=== PATIENT | male | born 2000 | race Caucasian/White ===

== ENCOUNTER 2024-02-28 09:30 | Emergency (ER) | payer OTHER ==
[2024-02-28] MEDS ORDERED: Epinephrine Preservative Free 1 MG/ML ONE (09:32)
[2024-02-28] MEDS ORDERED: BENADRYL 50 MG/ML ONE (09:36)
[2024-02-28] MEDS ORDERED: DECADRON 10MG INJ. ONE (09:36)
[2024-02-28] MEDS ORDERED: Pepcid 20 MG VIAL IV ONE (09:36)
--- NOTE | 2024-02-28 09:37 | ERPHSYRPT ---
- History of Present Illness Time Seen by Provider: 02/28/24 09:36 Source: patient Exam Limitations: no limitations Severity: mild
[2024-02-28 09:43] VITALS: TEMP 99.5
[2024-02-28] MEDS: DECADRON 10MG INJ. IV ONE (09:44)
[2024-02-28] MEDS: BENADRYL 50 MG/ML IV ONE (09:44)
[2024-02-28] MEDS: Pepcid 20 MG VIAL IV ONE (09:45)
[2024-02-28] MEDS ORDERED: Sodium Chloride 0.9% 1000 ML 1,000 ML ONE (09:45)
[2024-02-28] MEDS ORDERED: Zofran 4 MG/2 ML VIAL ONE (09:45)
[2024-02-28] MEDS: Epinephrine Preservative Free 1 MG/ML IJ ONE (09:47)
[2024-02-28] MEDS: Sodium Chloride 0.9% 1000 ML 1,000 ML IV STA (09:47)
[2024-02-28] MEDS: Zofran 4 MG/2 ML VIAL IV ONE (09:49)
--- NOTE | 2024-02-28 10:07 | ERPHSYRPT ---
- History of Present Illness Time Seen by Provider: 02/28/24 09:36 Source: patient Exam Limitations: no limitations Patient Subjective Stated Complaint: PT states "I was eating a cookie and all of a sudden my throat started to hurt and my talking got off and I was coughing." Triage Nursing Assessment: PT presented alert and oriented X 3, skin wpd. pt ambulates with an upright steady gait, able to speak in clear full sentences. PT has slight cough, hoarse voice and slight swelling noted. Timing/Duration: today Severity: severe Modifying Factors: Improves With: other (eating cookie) Associated Symptoms: other Allergies/Adverse Reactions: No Known Drug Allergies Allergy (Verified 02/28/24 09:43) Hx Tetanus, Diphtheria Vaccination/Date Given: Yes Hx Influenza Vaccination/Date Given: Yes Hx Pneumococcal Vaccination/Date Given: No Immunizations Up to Date: No Travel Risk - International Travel Have you traveled outside of the country in past 3 weeks: No - Emerging Infectious Disease Are you exhibiting symptoms associated with any current EIDs: No - Review of Systems Eyes: No Symptoms Ears, Nose, & Throat: Other (difficulty breathing and sensation that his throat is closing ) Respiratory: No Symptoms Cardiac: No Symptoms Abdominal/Gastrointestinal: No Symptoms Genitourinary Symptoms: No Symptoms Musculoskeletal: No Symptoms Skin: No Symptoms Neurological: No Symptoms Psychological: No Symptoms Endocrine: No Symptoms - Past Medical History Pertinent Past Medical History: Yes Neurological History: No Pertinent History ENT History: No Pertinent History Cardiac History: No Pertinent History, Hypertension Respiratory History: No Pertinent History Endocrine Medical History: No Pertinent History Musculoskeletal History: No Pertinent History - Past Surgical History Past Surgical History: No - Social History Smoking Status: Never smoker Exposure to second hand smoke: No Drug Use: none - Social Determinants of Health Will the patient participate in the screening: Declined to provide - Nursing Vital Signs Nursing Vital Signs: Initial Vital Signs Temperature 99.5 F 02/28/24 09:34 Pulse Rate 89 02/28/24 09:34 Respiratory Rate 20 02/28/24 09:34 Blood Pressure 201/118 02/28/24 09:34 O2 Sat by Pulse Oximetry 96 02/28/24 09:34 Pain Scale Pain Intensity 0 - Physical Exam General Appearance: mild distress Eye Exam: PERRL/EOMI Ears, Nose, Throat Exam: normal ENT inspection Neck Exam: normal inspection Respiratory Exam: normal breath sounds Cardiovascular Exam: regular rate/rhythm Gastrointestinal/Abdomen Exam: soft, normal bowel sounds SpO2: 96 Ordered Tests: Medication Summary Discontinued Medications Generic Name Dose Route Start Last Admin Trade Name Yeny PRN Reason Stop Dose Admin Dexamethasone Sodium Phosphate 10 mg 02/28/24 09:35 02/28/24 09:48 Dexamethasone Sod Phosphate 10 Mg/Ml IV 02/28/24 09:36 10 mg STAT ONE Administration Dexamethasone Sodium Phosphate Confirm 02/28/24 09:36 Dexamethasone Sod Phosphate 10 Mg/Ml Administered 02/28/24 09:37 Dose 10 mg .ROUTE .STK-MED ONE Diphenhydramine HCl 50 mg 02/28/24 09:35 02/28/24 09:44 Diphenhydramine Hcl 50 Mg/Ml Vial IV 02/28/24 09:36 50 mg STAT ONE Administration Diphenhydramine HCl Confirm 02/28/24 09:36 Diphenhydramine Hcl 50 Mg/Ml Vial Administered 02/28/24 09:37 Dose 50 mg .ROUTE .STK-MED ONE Epinephrine HCl 0.36 mg 02/28/24 09:46 02/28/24 09:47 Epinephrine 1 Mg/1 Ml Pf Amp 1 Mg/Ml Ml IJ 02/28/24 09:47 0.36 mg STAT ONE Administration Famotidine 20 mg 02/28/24 09:35 02/28/24 09:45 Famotidine 20 Mg/1 Vial IV 02/28/24 09:36 20 mg STAT ONE Administration Famotidine Confirm 02/28/24 09:36 Famotidine 20 Mg/1 Vial Administered 02/28/24 09:37 Dose 20 mg IV .STK-MED ONE Sodium Chloride 1,000 mls @ 999 mls/hr 02/28/24 09:46 02/28/24 10:50 Sodium Chloride 0.9% 1000 Ml IV 02/28/24 10:46 Infused .Q1H1M STA Infusion Ondansetron HCl 4 mg 02/28/24 09:46 02/28/24 09:49 Ondansetron Hcl 4 Mg/2 Ml Vial IV 02/28/24 09:47 4 mg STAT ONE Administration - Progress Progress Note: Right otitis media patient was treated for an allergic reaction he was given epinephrine fluids Decadron Benadryl and Pepcid he was reevaluated and feels much better 02/28/24 10:07 02/28/24 12:34 f patient was reexamined after being observed in the department for several hours, he feels better and wants to go home he will be discharged home with prednisone epipen and was informed of the need to take pepcid and benadryl otc Medical Desision Making - Discussion of managment Agreed on:: need for follow-up - Departure Clinical Impression: Acute allergic reaction Condition: Good Critical Care Time: No Prescriptions: Prednisone 10 mg [Deltasone 10 mg] 20 mg PO BID #20 tablet EPINEPHrine [Epipen 2-Blaze] 0.3 mg IJ LUNCH #2
[2024-02-28 12:26] VITALS: BP 157/92
[2024-02-28 12:27] VITALS: PULSE 82; RESP 16
[2024-02-28 12:39] VITALS: O2SAT 96
== END 2024-02-28 12:58 | disposition home or self-care (01) ==
LOC: ED 09:30
DX: T78.1XXA Other adverse food reactions, not elsewhere classified, initial encounter (principal); I10 Essential (primary) hypertension; Z79.52 Long term (current) use of systemic steroids
CPT/HCPCS: 96360; 96372; 96374; 96375; 99284; J0171; J1100; J1200; J2405

== ENCOUNTER 2024-04-29 09:18 | Emergency (ER) | payer OTHER ==
--- NOTE | 2024-04-29 09:27 | ERPHSYRPT ---
- History of Present Illness Time Seen by Provider: 04/29/24 09:26 Source: patient Exam Limitations: no limitations Physician History: This is a 23-year-old white male patient who receives his primary medical treatment out of the [facility] and presents to the emergency department by private vehicle. Today at work, patient was having a headache and his blood pressure was taken and he had a systolic blood pressure of over 200. Patient also complained of some chest pain at the time. He describes the chest pain as nonradiating substernal and central that is sharp and mild. Patient has no history of coronary artery disease. Patient's only blood pressure medication is losartan. Patient currently has no shortness of breath but did experience some earlier. His room air oxygen saturation level on arrival to the emergency department is 98%. He denies cough. He still has a mild headache. He overall just does not feel well per his report. Patient has no known drug allergies. Severity: mild Associated Symptoms: chest pain, headaches, No shortness of breath, No cough Allergies/Adverse Reactions: No Known Drug Allergies Allergy (Verified 02/28/24 09:43) Home Medications: Losartan Potassium [Cozaar] 100 mg PO DAILY 04/29/24 [History] Hx Tetanus, Diphtheria Vaccination/Date Given: Yes Hx Influenza Vaccination/Date Given: Yes Hx Pneumococcal Vaccination/Date Given: No Travel Risk - International Travel Have you traveled outside of the country in past 3 weeks: No - Emerging Infectious Disease Are you exhibiting symptoms associated with any current EIDs: No - Review of Systems Constitutional: No Symptoms Eyes: No Symptoms Ears, Nose, & Throat: No Symptoms Respiratory: No Symptoms Cardiac: Chest Pain (Sharp nonradiating substernal central that is mild) Abdominal/Gastrointestinal: No Symptoms Genitourinary Symptoms: No Symptoms Musculoskeletal: No Symptoms Skin: No Symptoms Neurological: Headache, No Dizziness, No Speech Changes, No Vertigo Psychological: No Symptoms Endocrine: No Symptoms Hematologic/Lymphatic: No Symptoms Immunological/Allergic: No Symptoms All Other Systems: Reviewed and Negative - Past Medical History Pertinent Past Medical History: Yes Neurological History: No Pertinent History ENT History: No Pertinent History Cardiac History: No Pertinent History, Hypertension Respiratory History: No Pertinent History Endocrine Medical History: No Pertinent History Musculoskeletal History: No Pertinent History - Past Surgical History Past Surgical History: No - Social History Smoking Status: Never smoker Exposure to second hand smoke: No Drug Use: none - Social Determinants of Health Will the patient participate in the screening: Declined to provide - Nursing Vital Signs Nursing Vital Signs: Initial Vital Signs Pulse Rate 80 04/29/24 09:32 Respiratory Rate 22 04/29/24 09:32 Blood Pressure 183/131 04/29/24 09:32 O2 Sat by Pulse Oximetry 97 04/29/24 09:32 Pain Scale Pain Intensity 6 - Physical Exam General Appearance: no apparent distress, alert, anxiety Eye Exam: PERRL/EOMI, eyes nml inspection Ears, Nose, Throat Exam: normal ENT inspection, moist mucous membranes Neck Exam: normal inspection, non-tender, supple, full range of motion Respiratory Exam: normal breath sounds, lungs clear, airway intact, No chest tenderness (No chest pain at the time of this examination but he did have it earlier), No respiratory distress Cardiovascular Exam: regular rate/rhythm, normal heart sounds, normal peripheral pulses Gastrointestinal/Abdomen Exam: soft, normal bowel sounds, No tenderness Rectal Exam: not done Back Exam: normal inspection, normal range of motion, No CVA tenderness, No vertebral tenderness Extremity Exam: normal inspection, normal range of motion, pelvis stable Neurologic Exam: alert, oriented x 3, cooperative, on awake counselor II-XII nml as tested, nml cerebellar function, nml station & gait, sensation nml Skin Exam: normal color, warm, dry Lymphatic Exam: No adenopathy SpO2 Interpretation: normal O2 Delivery: Room Air - Course Nursing assessment & vital signs reviewed: Yes EKG Interpreted by Me: RATE (78), Sinus Rhythm, NORMAL AXIS, NORMAL INTERVALS, NORMAL QRS, NORMAL ST-T, Other (No acute ischemia on today's twelve-lead ECG. 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 04/29/24 09:57 Active EKG-ER Only STAT Care 04/29/24 09:57 Active IV Insertion STAT Care 04/29/24 09:57 Active Pulse Oximetry (ED) STAT Care 04/29/24 09:57 Active CHEST 1 VIEW (PORTABLE) Stat Exams 04/29/24 09:57 Completed CBC W DIFF Stat Lab 04/29/24 10:15 Completed CMP Stat Lab 04/29/24 10:15 Completed D-DIMER QUANTITATIVE Stat Lab 04/29/24 10:15 Completed PROTIME WITH INR Stat Lab 04/29/24 10:15 Completed TROPONIN Q4H Lab 04/29/24 10:15 Completed TROPONIN Q4H Lab 04/29/24 11:46 Completed TROPONIN Q4H Lab 04/29/24 18:00 Ordered Medication Summary Discontinued Medications Generic Name Dose Route Start Last Admin Trade Name Yeny PRN Reason Stop Dose Admin Aspirin 324 mg 04/29/24 09:57 04/29/24 10:02 Aspirin 81 Mg Tab.Chew PO 04/29/24 09:58 324 mg STAT ONE Administration Aspirin Confirm 04/29/24 10:02 Aspirin 81 Mg Tab.Chew Administered 04/29/24 10:03 Dose 324 mg .ROUTE .STK-MED ONE Metoprolol Tartrate 5 mg 04/29/24 11:07 04/29/24 11:20 Metoprolol Tartrate 5 Mg/5 Ml Vial IV 04/29/24 11:08 5 mg STAT ONE Administration Metoprolol Tartrate Confirm 04/29/24 11:17 Metoprolol Tartrate 5 Mg/5 Ml Vial Administered 04/29/24 11:18 Dose 5 mg IV .STK-MED ONE Morphine Sulfate 4 mg 04/29/24 10:08 04/29/24 10:42 Morphine Sulfate 4 Mg/Ml Injection IV 04/29/24 10:09 4 mg STAT ONE Administration Morphine Sulfate Confirm 04/29/24 10:41 Morphine Sulfate 4 Mg/Ml Injection Administered 04/29/24 10:42 Dose 4 mg .ROUTE .STK-MED ONE Morphine Sulfate 4 mg 04/29/24 11:32 04/29/24 11:50 Morphine Sulfate 4 Mg/Ml Injection IV 04/29/24 11:33 4 mg STAT ONE Administration Morphine Sulfate Confirm 04/29/24 11:49 Morphine Sulfate 4 Mg/Ml Injection Administered 04/29/24 11:50 Dose 4 mg .ROUTE .STK-MED ONE Ondansetron HCl 4 mg 04/29/24 10:08 04/29/24 10:42 Ondansetron Hcl 4 Mg/2 Ml Vial IV 04/29/24 10:09 4 mg STAT ONE Administration Ondansetron HCl Confirm 04/29/24 10:41 Ondansetron Hcl 4 Mg/2 Ml Vial Administered 04/29/24 10:42 Dose 4 mg .ROUTE .STK-MED ONE Lab/Rad Data: Laboratory Result Diagrams 04/29/24 10:15 04/29/24 10:15 Laboratory Results 04/29/24 04/29/24 04/29/24 Range/Units 11:46 10:15 10:15 WBC (4.23-9.07) x10^3/uL RBC (4.63-6.08) x10^6/uL Hgb (13.7-17.5) g/dL Hct (40.1-51.0) % MCV (79.0-92.2) fL MCH (25.7-32.2) pg MCHC (32.3-36.5) g/dL RDW (11.6-14.4) % Plt Count (163-337) x10^3/uL MPV (9.4-12.4) fL Gran % (34.0-67.9) % Immature Gran % (Auto) (0.001-0.429) % Nucleat RBC Rel Count (0.00-0.2) % Eos # (Auto) (0.04-0.54) x10^3/uL Immature Gran # (Auto) (0.001-0.031) x10^3u/L Absolute Lymphs (auto) (1.32-3.57) x10^3/uL Absolute Monos (auto) (0.30-0.82) x10^3/uL Absolute Nucleated RBC (0.00-0.012) x10^3u/L Lymphocytes % (21.8-53.1) % Monocytes % (5.3-12.2) % Eosinophils % (0.8-7.0) % Basophils % (0.2-1.2) % Absolute Granulocytes (1.78-5.38) x10^3/uL Basophils # (0.01-0.08) x10^3/uL PT 10.6 (9.4-12.5) SECONDS INR 0.97 (0.8-3.0) D-Dimer < 0.19 (0.0-0.50) mg/L Sodium (135-145) mmol/L Potassium (3.5-5.1) mmol/L Chloride (98-107) mmol/L Carbon Dioxide (22-30) mmol/L Anion Gap (5-15) MEQ/L BUN (9-20) mg/dL Creatinine (0.66-1.25) mg/dL Estimated GFR ML/MIN Glucose (74-106) mg/dL Calcium (8.4-10.2) mg/dL Total Bilirubin (0.2-1.3) mg/dL AST (17-59) U/L ALT (0-50) U/L Alkaline Phosphatase (38-126) U/L Troponin I < 0.012 < 0.012 (0.000-0.033) ng/mL Serum Total Protein (6.3-8.2) g/dL Albumin (3.5-5.0) g/dL 04/29/24 04/29/24 Range/Units 10:15 10:15 WBC 7.3 (4.23-9.07) x10^3/uL RBC 5.67 (4.63-6.08) x10^6/uL Hgb 17.3 (13.7-17.5) g/dL Hct 48.5 (40.1-51.0) % MCV 85.5 (79.0-92.2) fL MCH 30.5 (25.7-32.2) pg MCHC 35.7 (32.3-36.5) g/dL RDW 12.4 (11.6-14.4) % Plt Count 221 (163-337) x10^3/uL MPV 9.2 L (9.4-12.4) fL Gran % 63.7 (34.0-67.9) % Immature Gran % (Auto) 0.4 (0.001-0.429) % Nucleat RBC Rel Count 0.0 (0.00-0.2) % Eos # (Auto) 0.10 (0.04-0.54) x10^3/uL Immature Gran # (Auto) 0.03 (0.001-0.031) x10^3u/L Absolute Lymphs (auto) 1.77 (1.32-3.57) x10^3/uL Absolute Monos (auto) 0.69 (0.30-0.82) x10^3/uL Absolute Nucleated RBC 0.00 (0.00-0.012) x10^3u/L Lymphocytes % 24.4 (21.8-53.1) % Monocytes % 9.5 (5.3-12.2) % Eosinophils % 1.4 (0.8-7.0) % Basophils % 0.6 (0.2-1.2) % Absolute Granulocytes 4.63 (1.78-5.38) x10^3/uL Basophils # 0.04 (0.01-0.08) x10^3/uL PT (9.4-12.5) SECONDS INR (0.8-3.0) D-Dimer (0.0-0.50) mg/L Sodium 138 (135-145) mmol/L Potassium 5.0 (3.5-5.1) mmol/L Chloride 103 (98-107) mmol/L Carbon Dioxide 26 (22-30) mmol/L Anion Gap 13.9 (5-15) MEQ/L BUN 14 (9-20) mg/dL Creatinine 1.05 (0.66-1.25) mg/dL Estimated GFR 102.3 ML/MIN Glucose 88 (74-106) mg/dL Calcium 9.7 (8.4-10.2) mg/dL Total Bilirubin 0.70 (0.2-1.3) mg/dL AST 45 (17-59) U/L ALT 62 H (0-50) U/L Alkaline Phosphatase 42 (38-126) U/L Troponin I (0.000-0.033) ng/mL Serum Total Protein 7.3 (6.3-8.2) g/dL Albumin 4.4 (3.5-5.0) g/dL - Progress Progress: improved, re-examined Progress Note: 04/29/24 11:20 My medical decision making and the assignment of moderate complexity is based on review of the patient's past medical history, review the patient's medication list, reviewed patient drug allergy list, history present illness and physical findings on examination. The workup in this patient includes placement of intravenous line, infusion of Lopressor medication, infusion of 4 mg Zofran and 4 mg of morphine, CBC, CMP, BNP, D-dimer, troponin level, twelve-lead EKG, magnesium level and chest x-ray. Differential diagnosis includes but is not limited to breakthrough hypertension, anxiety/stress, electrolyte abnormalities, arrhythmias, myocardial infarction, pulmonary embolus, pneumonia I interpreted the patient's laboratory data results. Based on the laboratory data results, there are no acute, emergent medical issues. The chest x-ray was interpreted by the radiologist and I reviewed the impression. The impression states no acute cardiopulmonary process. 04/29/24 11:44 I interpreted the patient's repeat twelve-lead EKG that was performed on 04/29/2024 at 1137. The heart rate is 60 and it is normal sinus rhythm. The QTc is 345. The computer readout states ST elevation consider inferior injury. In comparing the 2 twelve-lead EKGs, I do not appreciate a ST elevation in any leads. 04/29/24 12:33 The patient's chest pain has improved and is nearly resolved. He is feeling much better than when he came into the emergency department. His repeat, second troponin is normal/negative. 04/29/24 13:01 I reexamined the patient and the patient has no chest pain. I spoke with both the patient and his spouse. The spouse happens to be a registered nurse. The patient's heart score is low. I did offer the patient to be observed in the hospital setting if he wishes to. I do not feel it is absolute the necessary to do so. Patient's systolic blood pressure is now 148. Counseled pt/family regarding: lab results, diagnosis, need for follow-up, rad results Medical Desision Making - Independent Historian Additional History obtained from: Spouse - Diagnostic Testing Radiological Interpretation: Reviewed by me, Teleradiologist Report - Risk of complications Low Risk: Low risk of morbidity from additional dx testing or treatment - Departure Departure Disposition: Home Clinical Impression: Nonspecific chest pain, Hypertension Condition: Stable Critical Care Time: No Referrals: [facility]OS[facility],'S [Primary Care Provider] - Follow up/PCP as directed Instructions: Hypertension Additional Instructions: Your medications as prescribed. Call your prescribing provider today, 04/29/2024, to make arrangements for follow-up appointment and to be seen within the next 3 days. Keep a morning noon and night blood pressure log for the next 48 hours and present that log to your prescribing provider at your next appointment.
[2024-04-29 09:41] VITALS: TEMP 97.2
[2024-04-29] MEDS ORDERED: BABY ASPIRIN 81 MG CHEW ONE (10:02)
[2024-04-29] MEDS: BABY ASPIRIN 81 MG CHEW PO ONE (10:02)
[2024-04-29 10:23] LABS: Absolute Neutrophil Ct (ANC) 4.63 x10^3/uL (1.78-5.38); BASOPHIL % 0.6 % (0.2-1.2); Basophil (Absolute #) 0.04 x10^3/uL (0.01-0.08); Eosinophil % 1.4 % (0.8-7.0); Hematocrit 48.5 % (40.1-51.0); Hemoglobin 17.3 g/dL (13.7-17.5); IMMATURE GRAN # 0.03 x10^3u/L (0.001-0.031); IMMATURE GRAN % 0.4 % (0.001-0.429); Lymphocyte (Absolute #) 1.77 x10^3/uL (1.32-3.57); Lymphocytes % 24.4 % (21.8-53.1); Mean Cell Volume 85.5 fL (79.0-92.2); Mean Corpuscular Hemoglobin 30.5 pg (25.7-32.2); Mean Corpuscular Hgb Concent. 35.7 g/dL (32.3-36.5); Mean Platelet Volume 9.2 fL (9.4-12.4); Monocyte (Absolute #) 0.69 x10^3/uL (0.30-0.82); Monocytes % 9.5 % (5.3-12.2); Neutrophil % 63.7 % (34.0-67.9); Platelet Count 221 x10^3/uL (163-337); Red Blood Count 5.67 x10^6/uL (4.63-6.08); Red Cell Distribution Width 12.4 % (11.6-14.4); White Blood Count 7.3 x10^3/uL (4.23-9.07)
[2024-04-29 10:37] LABS: D-DIMER QUANTITATIVE < 0.19 mg/L (0.0-0.50); INR 0.97 (0.8-3.0); PROTIME 10.6 SECONDS (9.4-12.5)
[2024-04-29] MEDS ORDERED: MORPHINE SULFATE 4 MG INJ ONE ×2 (10:41→11:49)
[2024-04-29] MEDS ORDERED: Zofran 4 MG/2 ML VIAL ONE (10:41)
[2024-04-29] MEDS: MORPHINE SULFATE 4 MG INJ IV ONE ×2 (10:42→11:50)
[2024-04-29] MEDS: Zofran 4 MG/2 ML VIAL IV ONE (10:42)
[2024-04-29 10:47] LABS: ALBUMIN 4.4 g/dL (3.5-5.0); ANION GAP 13.9 MEQ/L (5-15); BILIRUBIN,TOTAL 0.7 mg/dL (0.2-1.3); Calcium 9.7 mg/dL (8.4-10.2); Creatinine 1 1.05 mg/dL (0.66-1.25); EST GLOMERULAR FILTRATION RATE 102.3 ML/MIN; Total Protein 7.3 g/dL (6.3-8.2)
--- NOTE | 2024-04-29 10:52 | XRAY ---
Indication: Chest pain. Comparison: None Portable chest demonstrates normal heart, lungs, and bony thorax.
[2024-04-29 11:05] VITALS: O2SAT 98
[2024-04-29] MEDS ORDERED: LOPRESSOR INJECTION IV ONE (11:17)
[2024-04-29] MEDS: LOPRESSOR INJECTION IV ONE (11:20)
[2024-04-29 13:02] VITALS: BP 167/113; PULSE 61; RESP 14
== END 2024-04-29 13:17 | disposition home or self-care (01) ==
LOC: ED 09:18
DX: I10 Essential (primary) hypertension (principal); R07.9 Chest pain, unspecified; R06.02 Shortness of breath; R51.9 Headache, unspecified; Z79.899 Other long term (current) drug therapy
CPT/HCPCS: 36000; 36415; 71045; 80053; 84484; 85025; 85379; 85610; 93005; 93041; 94760; 96374; 96375; 96376; 99284; 99285; J2270; J2405; A9270-GY

== ENCOUNTER 2024-07-09 07:11 | Observation (INO) | payer OTHER ==
--- NOTE | 2024-07-09 07:31 | ERPHSYRPT ---
- History of Present Illness Time Seen by Provider: 07/09/24 07:27 Source: patient Exam Limitations: no limitations Physician History: 24-year-old male past medical history of hypertension presents to our ED for evaluation of right sided chest pain x 4 days. Pain worse with inspiration. Pain improved with rest. No trauma no fever. No history of PE DVT. Pain associated with shortness of breath. No nausea vomiting or diaphoresis. Pain is mild to moderate in intensity. Patient states the pain tends to radiate down into the right abdominal area. Patient denies a history of the same. 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 He is a of the [employer]. Patient otherwise feels well. He voices no other complaints or concerns at this time. Portions of this note were created with voice recognition technology. There may be grammatical, spelling, punctuation or sound alike errors Timing/Duration: day(s) Severity: moderate (4 days) Modifying Factors: Improves With: nothing Associated Symptoms: denies symptoms Allergies/Adverse Reactions: pecan nut Allergy (Verified 07/09/24 07:20) Home Medications: Losartan Potassium [Cozaar] 100 mg PO DAILY 04/29/24 [History] Hydrochlorothiazide 25 mg [hydroDIURIL 25 MG] 25 mg PO DAILY 07/09/24 [History] Hx Tetanus, Diphtheria Vaccination/Date Given: Yes Hx Influenza Vaccination/Date Given: Yes Hx Pneumococcal Vaccination/Date Given: No Travel Risk - Emerging Infectious Disease Are you exhibiting symptoms associated with any current EIDs: No - Review of Systems Constitutional: No Symptoms, No Fever, No Chills Eyes: No Symptoms Ears, Nose, & Throat: No Symptoms Respiratory: No Symptoms, No Cough, No Dyspnea Cardiac: No Symptoms, No Chest Pain, No Edema, No Syncope Abdominal/Gastrointestinal: No Symptoms, No Abdominal Pain, No Nausea, No Vomiting, No Diarrhea Genitourinary Symptoms: No Symptoms, No Dysuria Musculoskeletal: No Symptoms, No Back Pain, No Neck Pain Skin: No Symptoms, No Rash Neurological: No Symptoms, No Dizziness, No Focal Weakness, No Sensory Changes Psychological: No Symptoms Endocrine: No Symptoms Hematologic/Lymphatic: No Symptoms Immunological/Allergic: No Symptoms All Other Systems: Reviewed and Negative - Past Medical History Pertinent Past Medical History: Yes Neurological History: No Pertinent History ENT History: No Pertinent History Cardiac History: No Pertinent History, Hypertension Respiratory History: No Pertinent History Endocrine Medical History: No Pertinent History Musculoskeletal History: No Pertinent History Psycho-Social History: Other Other Medical History: knee pain chronic ,deaf in left ear ,ptsd - Past Surgical History Past Surgical History: No - Social History Smoking Status: Never smoker Exposure to second hand smoke: No Drug Use: none - Social Determinants of Health Will the patient participate in the screening: Declined to provide - Nursing Vital Signs Nursing Vital Signs: Initial Vital Signs Blood Pressure 190/120 07/09/24 07:18 O2 Sat by Pulse Oximetry 98 07/09/24 07:18 Pain Scale Pain Intensity 4 - Physical Exam General Appearance: no apparent distress, alert Eye Exam: PERRL/EOMI, eyes nml inspection Ears, Nose, Throat Exam: normal ENT inspection, TMs normal, pharynx normal, moist mucous membranes Neck Exam: normal inspection, non-tender, supple, full range of motion Respiratory Exam: normal breath sounds, lungs clear, airway intact, No respirat ory distress Cardiovascular Exam: regular rate/rhythm, normal heart sounds, normal peripheral pulses Gastrointestinal/Abdomen Exam: soft, normal bowel sounds, No tenderness, No mass Back Exam: normal inspection, normal range of motion, No CVA tenderness, No vertebral tenderness Extremity Exam: normal inspection, normal range of motion, pelvis stable Neurologic Exam: alert, oriented x 3, cooperative, normal mood/affect, nml cerebellar function, nml station & gait, sensation nml, No motor deficits Skin Exam: normal color, warm, dry, No rash Lymphatic Exam: No adenopathy SpO2 Interpretation: normal SpO2: 99 O2 Delivery: Room Air - Course Nursing assessment & vital signs reviewed: Yes EKG Interpreted by Me: RATE (58), Sinus Rhythm, NORMAL AXIS, NORMAL INTERVALS, NORMAL QRS - CT Exams Chest CT Interpretation: Tele-radiologist Report (Normal CT chest with contrast) Abdomen/Pelvis CT Interpretation: Tele-radiologist Report (No acute findings CT abdomen pelvis) Ordered Tests: Active Orders 24 hr Category Date Time Status Barrer And Tacker STAT Care 07/09/24 07:25 Active EKG-ER Only STAT Care 07/09/24 07:25 Active IV Insertion STAT Care 07/09/24 07:25 Active Pulse Oximetry (ED) STAT Care 07/09/24 07:25 Active ABDOMEN AND PELVIS W CONTRAST [CT] Stat Exams 07/09/24 08:25 Completed CHEST WITH CONTRAST [CT] Stat Exams 07/09/24 08:25 Completed CBC W DIFF Stat Lab 07/09/24 07:40 Completed CMP Stat Lab 07/09/24 07:40 Completed D-DIMER QUANTITATIVE Stat Lab 07/09/24 07:40 Completed NT PRO BNPII Stat Lab 07/09/24 07:40 Completed TROPONIN Q4H Lab 07/09/24 07:40 Completed TROPONIN Q4H Lab 07/09/24 11:24 Received TROPONIN Q4H Lab 07/09/24 15:30 Ordered UA W/RFX UR CULTURE Stat Lab 07/09/24 10:02 Completed Transfer Order Routine Transfer 07/09/24 Ordered Medication Summary Generic Name Dose Route Start Last Admin Trade Name Juan Danielq PRN Reason Stop Dose Admin Hydrochlorothiazide 25 mg 07/10/24 10:25 07/09/24 10:44 Hydrochlorothiazide 25 Mg Tablet PO 07/10/24 10:26 25 mg STAT ONE Administration Losartan Potassium 100 mg 07/10/24 10:24 07/09/24 10:44 Losartan Potassium 50 Mg Tablet PO 07/10/24 10:25 100 mg STAT ONE Administration Discontinued Medications Generic Name Dose Route Start Last Admin Trade Name Freq PRN Reason Stop Dose Admin Aspirin 324 mg 07/09/24 11:36 07/09/24 11:51 Aspirin 81 Mg Tab.Chew PO 07/09/24 11:37 324 mg STAT ONE Administration Aspirin Confirm 07/09/24 11:44 Aspirin 81 Mg Tab.Chew Administered 07/09/24 11:45 Dose 324 mg .ROUTE .STK-MED ONE Ketorolac Tromethamine 30 mg 07/09/24 07:29 07/09/24 08:19 Ketorolac Tromethamine 30 Mg/Ml Inj IV 07/09/24 07:30 30 mg STAT ONE Administration Ketorolac Tromethamine Confirm 07/09/24 08:10 Ketorolac Tromethamine 30 Mg/Ml Inj Administered 07/09/24 08:11 Dose 30 mg .ROUTE .STK-MED ONE Morphine Sulfate 4 mg 07/09/24 11:28 07/09/24 11:50 Morphine Sulfate 4 Mg/Ml Injection IV 07/09/24 11:29 4 mg STAT ONE Administration Morphine Sulfate Confirm 07/09/24 11:44 Morphine Sulfate 4 Mg/Ml Injection Administered 07/09/24 11:45 Dose 4 mg .ROUTE .STK-MED ONE Nitroglycerin 1 gm 07/09/24 11:36 07/09/24 11:51 Nitroglycerin 1 Gm Packet TOP 07/09/24 11:37 1 gm STAT ONE Administration Nitroglycerin Confirm 07/09/24 11:44 Nitroglycerin 1 Gm Packet Administered 07/09/24 11:45 Dose 1 gm .ROUTE .STK-MED ONE Lab/Rad Data: Laboratory Result Diagrams 07/09/24 07:40 07/09/24 07:40 Laboratory Results 07/09/24 07/09/24 07/09/24 Range/Units 10:02 07:40 07:40 WBC (4.23-9.07) x10^3/uL RBC (4.63-6.08) x10^6/uL Hgb (13.7-17.5) g/dL Hct (40.1-51.0) % MCV (79.0-92.2) fL MCH (25.7-32.2) pg MCHC (32.3-36.5) g/dL RDW (11.6-14.4) % Plt Count (163-337) x10^3/uL MPV (9.4-12.4) fL Gran % (34.0-67.9) % Immature Gran % (Auto) (0.001-0.429) % Nucleat RBC Rel Count (0.00-0.2) % Eos # (Auto) (0.04-0.54) x10^3/uL Immature Gran # (Auto) (0.001-0.031) x10^3u/L Absolute Lymphs (auto) (1.32-3.57) x10^3/uL Absolute Monos (auto) (0.30-0.82) x10^3/uL Absolute Nucleated RBC (0.00-0.012) x10^3u/L Lymphocytes % (21.8-53.1) % Monocytes % (5.3-12.2) % Eosinophils % (0.8-7.0) % Basophils % (0.2-1.2) % Absolute Granulocytes (1.78-5.38) x10^3/uL Basophils # (0.01-0.08) x10^3/uL D-Dimer 0.67 H* (0.0-0.50) mg/L Sodium (135-145) mmol/L Potassium (3.5-5.1) mmol/L Chloride (98-107) mmol/L Carbon Dioxide (22-30) mmol/L Anion Gap (5-15) MEQ/L BUN (9-20) mg/dL Creatinine (0.66-1.25) mg/dL Estimated GFR ML/MIN Glucose (74-106) mg/dL Calcium (8.4-10.2) mg/dL Total Bilirubin (0.2-1.3) mg/dL AST (17-59) U/L ALT (0-50) U/L Alkaline Phosphatase (38-126) U/L Troponin I < 0.012 (0.000-0.033) ng/mL NT-Pro-B Natriuret Pep (<300) pg/mL Serum Total Protein (6.3-8.2) g/dL Albumin (3.5-5.0) g/dL Urine Color Yellow (Yellow) Urine Appearance Clear (Clear) Urine pH 7.0 (4.6-8.0) Ur Specific [place] 1.025 (1.005-1.030) Urine Protein Negative (Negative) Urine Glucose (UA) Negative (Negative) mg/dL Urine Ketones Negative (Negative) Urine Blood Negative (Negative) Urine Nitrite Negative (Negative) Urine Bilirubin Negative (Negative) Urine Urobilinogen 1.0 A (0.2) mg/dL Ur Leukocyte Esterase Negative (Negative) U Hyaline Cast (Auto) NONE SEEN (0-2) /LPF Urine Microscopic RBC 0-2 (0-5) /HPF Urine Microscopic WBC 0-2 (0-5) /HPF Ur Epithelial Cells None Seen (None Seen) /HPF Urine Bacteria None Seen (None Seen) /HPF Urine Culture Reflexed NO (NO) 07/09/24 07/09/24 Range/Units 07:40 07:40 WBC 6.8 (4.23-9.07) x10^3/uL RBC 5.64 (4.63-6.08) x10^6/uL Hgb 17.3 (13.7-17.5) g/dL Hct 48.9 (40.1-51.0) % MCV 86.7 (79.0-92.2) fL MCH 30.7 (25.7-32.2) pg MCHC 35.4 (32.3-36.5) g/dL RDW 12.1 (11.6-14.4) % Plt Count 270 (163-337) x10^3/uL MPV 9.3 L (9.4-12.4) fL Gran % 64.9 (34.0-67.9) % Immature Gran % (Auto) 0.4 (0.001-0.429) % Nucleat RBC Rel Count 0.0 (0.00-0.2) % Eos # (Auto) 0.09 (0.04-0.54) x10^3/uL Immature Gran # (Auto) 0.03 (0.001-0.031) x10^3u/L Absolute Lymphs (auto) 1.67 (1.32-3.57) x10^3/uL Absolute Monos (auto) 0.54 (0.30-0.82) x10^3/uL Absolute Nucleated RBC 0.00 (0.00-0.012) x10^3u/L Lymphocytes % 24.7 (21.8-53.1) % Monocytes % 8.0 (5.3-12.2) % Eosinophils % 1.3 (0.8-7.0) % Basophils % 0.7 (0.2-1.2) % Absolute Granulocytes 4.38 (1.78-5.38) x10^3/uL Basophils # 0.05 (0.01-0.08) x10^3/uL D-Dimer (0.0-0.50) mg/L Sodium 138 (135-145) mmol/L Potassium 4.3 (3.5-5.1) mmol/L Chloride 105 (98-107) mmol/L Carbon Dioxide 27 (22-30) mmol/L Anion Gap 11.0 (5-15) MEQ/L BUN 16 (9-20) mg/dL Creatinine 1.13 (0.66-1.25) mg/dL Estimated GFR 93.1 ML/MIN Glucose 91 (74-106) mg/dL Calcium 9.7 (8.4-10.2) mg/dL Total Bilirubin 0.60 (0.2-1.3) mg/dL AST 42 (17-59) U/L ALT 56 H (0-50) U/L Alkaline Phosphatase 48 (38-126) U/L Troponin I (0.000-0.033) ng/mL NT-Pro-B Natriuret Pep < 20.0 (<300) pg/mL Serum Total Protein 7.7 (6.3-8.2) g/dL Albumin 4.8 (3.5-5.0) g/dL Urine Color (Yellow) Urine Appearance (Clear) Urine pH (4.6-8.0) Ur Specific [place] (1.005-1.030) Urine Protein (Negative) Urine Glucose (UA) (Negative) mg/dL Urine Ketones (Negative) Urine Blood (Negative) Urine Nitrite (Negative) Urine Bilirubin (Negative) Urine Urobilinogen (0.2) mg/dL Ur Leukocyte Esterase (Negative) U Hyaline Cast (Auto) (0-2) /LPF Urine Microscopic RBC (0-5) /HPF Urine Microscopic WBC (0-5) /HPF Ur Epithelial Cells (None Seen) /HPF Urine Bacteria (None Seen) /HPF Urine Culture Reflexed (NO) - Progress Progress: improved Progress Note: Spoke to Dr. Contreras, Tele- senior sales engineer who advised that the EKG changes are likely secondary to high blood pressure and not an evolving STEMI 07/09/24 09:21 24-year-old male presents to emergency department for evaluation of chest pain. EKG was abnormal. We consulted with a senior sales engineer who agreed the EKG was abnormal however we reviewed the laboratory findings and the senior sales engineer felt the changes were due to blood pressure. Patient's troponins negative. Vital stable. Patient complains of substernal chest pain. CTA chest negative for PE. CT abdomen pelvis with contrast negative as well. Patient was due for his home blood pressure meds which we administered in our ED. Patient received Toradol for pain control followed by morphine. Patient then received aspirin as well as nitroglycerin paste. Case discussed with hospitalist who accepts admission to observation. Plan of care discussed with patient. He agrees to admission at [facility] for further evaluation and treatment. Portions of this note were created with voice recognition technology. There may be grammatical, spelling, punctuation or sound alike errors Complexity of problem addressed is moderate acute complicated no critical care time. Complex of data reviewed and analyzed is asked extensive. Test ordered test reviewed results analyzed and correlated clinically with history and physical exam. Management discussed with both telemetry senior sales engineer and hospitalist. Risk of complication and or risk of morbidity/mortality of patient management is high. Patient requires hospitalization for further evaluation and treatment. Vital stable. Time spent admit patient is approximately 15 minutes. Plan of care established for shared decision making. No social deter minants of health present to impede follow-up. Portions of this note were created with voice recognition technology. There may be grammatical, spelling, punctuation or sound alike errors 07/09/24 11:54 Counseled pt/family regarding: lab results, diagnosis, rad results - Departure Departure Disposition: Observation Clinical Impression: Chest pain, ACS (acute coronary syndrome), Hypertension, Abnormal EKG Condition: Stable Critical Care Time: No Referrals: [facility]OSPITAL,'S [Primary Care Provider] - Follow up/PCP as directed
[2024-07-09 07:46] LABS: Absolute Neutrophil Ct (ANC) 4.38 x10^3/uL (1.78-5.38); BASOPHIL % 0.7 % (0.2-1.2); Basophil (Absolute #) 0.05 x10^3/uL (0.01-0.08); Eosinophil % 1.3 % (0.8-7.0); Eosinophil (Absolute #) 0.09 x10^3/uL (0.04-0.54); Hematocrit 48.9 % (40.1-51.0); Hemoglobin 17.3 g/dL (13.7-17.5); IMMATURE GRAN # 0.03 x10^3u/L (0.001-0.031); IMMATURE GRAN % 0.4 % (0.001-0.429); Lymphocyte (Absolute #) 1.67 x10^3/uL (1.32-3.57); Lymphocytes % 24.7 % (21.8-53.1); Mean Cell Volume 86.7 fL (79.0-92.2); Mean Corpuscular Hemoglobin 30.7 pg (25.7-32.2); Mean Corpuscular Hgb Concent. 35.4 g/dL (32.3-36.5); Mean Platelet Volume 9.3 fL (9.4-12.4); Monocyte (Absolute #) 0.54 x10^3/uL (0.30-0.82); Neutrophil % 64.9 % (34.0-67.9); Platelet Count 270 x10^3/uL (163-337); Red Blood Count 5.64 x10^6/uL (4.63-6.08); Red Cell Distribution Width 12.1 % (11.6-14.4); White Blood Count 6.8 x10^3/uL (4.23-9.07)
[2024-07-09 08:10] LABS: ALBUMIN 4.8 g/dL (3.5-5.0); ALKALINE PHOSPHATASE 48 U/L (38-126); BLOOD UREA NITROGEN 16 mg/dL (9-20); CHLORIDE 105 mmol/L (98-107); Calcium 9.7 mg/dL (8.4-10.2); Carbon Dioxide 27 mmol/L (22-30); Creatinine 1 1.13 mg/dL (0.66-1.25); EST GLOMERULAR FILTRATION RATE 93.1 ML/MIN; Glucose 91 mg/dL (74-106); NT PRO BNPII < 20.0 pg/mL (<300); Potassium 4.3 mmol/L (3.5-5.1); SGOT/AST 42 U/L (17-59); SGPT/ALT 56 U/L (0-50); SODIUM 138 mmol/L (135-145); Total Protein 7.7 g/dL (6.3-8.2)
[2024-07-09] MEDS ORDERED: TORAdol 30 mg Injection ONE (08:10)
[2024-07-09] MEDS: TORAdol 30 mg Injection IV ONE (08:19)
[2024-07-09] MEDS: hydroDIURIL 25 MG PO ONE (10:44)
[2024-07-09] MEDS: Cozaar 50 MG PO ONE (10:44)
--- NOTE | 2024-07-09 10:57 | XRAY ---
Indication: Pain, short of breath, and elevated d-dimer. Multiple contiguous axial images obtained through the chest using 80 cc Isovue 370 contrast and PE protocol. Comparison: None Good opacification pulmonary arteries to include lobar and segmental branches. No pulmonary embolus. Heart not enlarged. Aorta is normal in course and caliber. No pathologic mediastinal/hilar lymphadenopathy. Lungs inflated and clear. Bony thorax intact. CT abdomen/pelvis reported separately. Impression: Normal CT chest with contrast exam.
--- NOTE | 2024-07-09 11:06 | XRAY ---
Indication: Pain. Multiple contiguous axial images obtained through the abdomen and pelvis using 80 cc Isovue 370 contrast. Comparison: None CT chest reported separately. Noncontrasted stomach and bowel loops appear nonobstructed. Normal appendix. Mild diffuse scattered colonic fecal debris greatest in ascending and transverse colon. No free fluid/air. Nonobstructing right renal punctate calculus. Remaining liver, gallbladder, pancreas, spleen, adrenal glands, kidneys, ureters, bladder, and aorta are normal in CT appearance and attenuation. No pathologic retroperitoneal lymphadenopathy. Osseous structures intact with incidental superior L4 Schmorl node. No ventral or inguinal hernias. Impression: Mild diffuse fecal stasis and nonobstructing right renal punctate calculus. Remaining CT abdomen/pelvis with contrast exam is normal.
[2024-07-09 11:28] LABS: Appearance Clear (Clear); Bacteria None Seen /HPF (None Seen); Bilirubin Negative (Negative); Blood Negative (Negative); Epithelial Cells None Seen /HPF (None Seen); Glucose, Urine Negative (Negative); Hyaline Casts NONE SEEN /LPF (0-2); Ketones Negative (Negative); Leukocyte Esterase Negative (Negative); Nitrite Negative (Negative); Protein,Urine Dip Negative (Negative); RBC 0-2 /HPF (0-5); Specific Gravity 1.025 (1.005-1.030); WBC 0-2 /HPF (0-5)
[2024-07-09] MEDS ORDERED: NITRO-BID 2% UD PACKETS ONE (11:44)
[2024-07-09] MEDS ORDERED: MORPHINE SULFATE 4 MG INJ ONE (11:44)
[2024-07-09] MEDS ORDERED: BABY ASPIRIN 81 MG CHEW ONE (11:44)
[2024-07-09] MEDS: MORPHINE SULFATE 4 MG INJ IV ONE (11:50)
[2024-07-09] MEDS: BABY ASPIRIN 81 MG CHEW PO ONE (11:51)
[2024-07-09] MEDS: NITRO-BID 2% UD PACKETS TOP ONE (11:51)
--- NOTE | 2024-07-09 13:09 | PCM.HP ---
History of Present Illness - Chief Complaint Chief Complaint: chest pain, constipation, HTN Date: 07/09/24 History of Present Illness: is a 24 year old male with PMHX of HTN he presented to our ED for evaluation of right sided chest pain x 4 days. Pain worse with inspiration. Pain improved with rest. No trauma no fever. No history of PE DVT. Pain associated with shortness of breath. No nausea vomiting or diaphoresis. Pain is mild to moderate in intensity. Patient states the pain tends to radiate down into the right abdominal area. Abd CT/pelvis shows constipation. He reports last BM was this AM. He reports he did not take his BP medication today and BP elevated on admission. BP restarted IP. Trop x2 negative. Cardiology consulted as EKG is abnormal. Will also repeat EKG. Nitro paste applied in ER and pt reports maynor now has a H/A and received no relief from it. He denies any further concerns at this time. - Review of Systems Constitutional: No Fever, No Chills Eyes: No Symptoms Ears, Nose, & Throat: No Symptoms Respiratory: Short Of Breath, No Cough Cardiac: Chest Pain, No Edema, No Syncope Abdominal/Gastrointestinal: Abdominal Pain, No Nausea, No Vomiting, No Diarrhea Genitourinary Symptoms: No Dysuria Musculoskeletal: No Back Pain, No Neck Pain Skin: No Rash Neurological: No Dizziness, No Focal Weakness, No Sensory Changes Psychological: No Symptoms Endocrine: No Symptoms Hematologic/Lymphatic: No Symptoms Immunological/Allergic: No Symptoms Medications & Allergies Home Medications: Home Medication List Losartan Potassium [Cozaar] 100 mg PO DAILY 04/29/24 [History Confirmed 07/09/24] Hydrochlorothiazide 25 mg [hydroDIURIL 25 MG] 25 mg PO DAILY 07/09/24 [History Confirmed 07/09/24] Allergies/Adverse Reactions: Allergies Allergy/AdvReac Type Severity Reaction Status Date / Time pecan nut Allergy Verified 07/09/24 07:20 - Past Medical History Past Medical History: Yes Neurological History: No Pertinent History ENT History: No Pertinent History Cardiac History: No Pertinent History, Hypertension Respiratory History: No Pertinent History Endocrine Medical History: No Pertinent History Musculoskelatal History: No Pertinent History Pyscho-Social History: Other Comment: knee pain chronic ,deaf in left ear ,ptsd - Past Surgical History Past Surgical History: No Significant Family History: no pertinent family hx - Social History Smoking Status: Never smoker Exposure to second hand smoke: No Alcohol: None Drug Use: none - Social Determinants of Health Will the patient participate in the screening: Declined to provide Do you worry about a steady place to live?: No In the past 12 months,have you had to go without utilities?: No Have you or anyone in your house had to go without enough: No Transportation Issues: No Has anyone in your support network made you feel unsafe?: No - Physical Exam Vital Signs: Vital Signs - 24 hr Temp Pulse Resp BP BP Pulse Ox 07/09/24 12:00 64 19 158/106 07/09/24 11:58 99 07/09/24 11:45 75 18 152/108 07/09/24 11:30 59 L 19 167/111 07/09/24 11:15 69 16 173/122 07/09/24 11:00 62 15 162/111 07/09/24 10:45 78 13 163/114 98 07/09/24 10:30 55 L 16 170/119 97 07/09/24 10:15 75 17 167/119 97 07/09/24 10:00 61 17 171/118 99 07/09/24 09:45 72 19 186/129 99 07/09/24 09:44 97 07/09/24 09:43 93 L 07/09/24 09:15 171/125 07/09/24 09:01 68 21 173/125 99 07/09/24 08:45 75 16 162/130 99 07/09/24 08:31 83 21 159/128 98 07/09/24 08:15 75 14 178/125 07/09/24 08:00 64 21 182/114 07/09/24 07:47 98 07/09/24 07:45 67 21 182/128 98 07/09/24 07:43 90 19 184/128 98 07/09/24 07:42 77 17 98 07/09/24 07:41 75 18 07/09/24 07:32 97 07/09/24 07:19 98.1 F 78 18 190/120 99 07/09/24 07:18 190/120 98 General Appearance: no apparent distress, alert Neurologic Exam: alert, oriented x 3, cooperative, normal mood/affect, nml cerebellar function, nml station & gait, sensation nml, No motor deficits Eye Exam: PERRL/EOMI, eyes nml inspection Ears, Nose, Throat Exam: normal ENT inspection, TMs normal, pharynx normal, moist mucous membranes Neck Exam: normal inspection, non-tender, supple, full range of motion Respiratory Exam: normal breath sounds, lungs clear, No respiratory distress Cardiovascular Exam: regular rate/rhythm, normal heart sounds, normal peripheral pulses Gastrointestinal/Abdomen Exam: soft, normal bowel sounds, No tenderness, No mass Back Exam: normal inspection, normal range of motion, No CVA tenderness, No vertebral tenderness Extremity Exam: normal inspection, normal range of motion, pelvis stable Skin Exam: normal color, warm, dry, No rash Lymphatic Exam: No adenopathy Results - Labs Lab/Micro Results: Lab Results-Last 24 Hours 07/09/24 07/09/24 07/09/24 Range/Units 07:40 07:40 07:40 WBC 6.8 (4.23-9.07) x10^3/uL RBC 5.64 (4.63-6.08) x10^6/uL Hgb 17.3 (13.7-17.5) g/dL Hct 48.9 (40.1-51.0) % MCV 86.7 (79.0-92.2) fL MCH 30.7 (25.7-32.2) pg MCHC 35.4 (32.3-36.5) g/dL RDW 12.1 (11.6-14.4) % Plt Count 270 (163-337) x10^3/uL MPV 9.3 L (9.4-12.4) fL Gran % 64.9 (34.0-67.9) % Immature Gran % (Auto) 0.4 (0.001-0.429) % Nucleat RBC Rel Count 0.0 (0.00-0.2) % Eos # (Auto) 0.09 (0.04-0.54) x10^3/uL Immature Gran # (Auto) 0.03 (0.001-0.031) x10^3u/L Absolute Lymphs (auto) 1.67 (1.32-3.57) x10^3/uL Absolute Monos (auto) 0.54 (0.30-0.82) x10^3/uL Absolute Nucleated RBC 0.00 (0.00-0.012) x10^3u/L Lymphocytes % 24.7 (21.8-53.1) % Monocytes % 8.0 (5.3-12.2) % Eosinophils % 1.3 (0.8-7.0) % Basophils % 0.7 (0.2-1.2) % Absolute Granulocytes 4.38 (1.78-5.38) x10^3/uL Basophils # 0.05 (0.01-0.08) x10^3/uL D-Dimer 0.67 H* (0.0-0.50) mg/L Sodium 138 (135-145) mmol/L Potassium 4.3 (3.5-5.1) mmol/L Chloride 105 (98-107) mmol/L Carbon Dioxide 27 (22-30) mmol/L Anion Gap 11.0 (5-15) MEQ/L BUN 16 (9-20) mg/dL Creatinine 1.13 (0.66-1.25) mg/dL Estimated GFR 93.1 ML/MIN Glucose 91 (74-106) mg/dL Calcium 9.7 (8.4-10.2) mg/dL Total Bilirubin 0.60 (0.2-1.3) mg/dL AST 42 (17-59) U/L ALT 56 H (0-50) U/L Alkaline Phosphatase 48 (38-126) U/L Troponin I (0.000-0.033) ng/mL NT-Pro-B Natriuret Pep < 20.0 (<300) pg/mL Serum Total Protein 7.7 (6.3-8.2) g/dL Albumin 4.8 (3.5-5.0) g/dL Urine Color (Yellow) Urine Appearance (Clear) Urine pH (4.6-8.0) Ur Specific [place] (1.005-1.030) Urine Protein (Negative) Urine Glucose (UA) (Negative) mg/dL Urine Ketones (Negative) Urine Blood (Negative) Urine Nitrite (Negative) Urine Bilirubin (Negative) Urine Urobilinogen (0.2) mg/dL Ur Leukocyte Esterase (Negative) U Hyaline Cast (Auto) (0-2) /LPF Urine Microscopic RBC (0-5) /HPF Urine Microscopic WBC (0-5) /HPF Ur Epithelial Cells (None Seen) /HPF Urine Bacteria (None Seen) /HPF Urine Culture Reflexed (NO) 07/09/24 07/09/24 07/09/24 Range/Units 07:40 10:02 11:24 WBC (4.23-9.07) x10^3/uL RBC (4.63-6.08) x10^6/uL Hgb (13.7-17.5) g/dL Hct (40.1-51.0) % MCV (79.0-92.2) fL MCH (25.7-32.2) pg MCHC (32.3-36.5) g/dL RDW (11.6-14.4) % Plt Count (163-337) x10^3/uL MPV (9.4-12.4) fL Gran % (34.0-67.9) % Immature Gran % (Auto) (0.001-0.429) % Nucleat RBC Rel Count (0.00-0.2) % Eos # (Auto) (0.04-0.54) x10^3/uL Immature Gran # (Auto) (0.001-0.031) x10^3u/L Absolute Lymphs (auto) (1.32-3.57) x10^3/uL Absolute Monos (auto) (0.30-0.82) x10^3/uL Absolute Nucleated RBC (0.00-0.012) x10^3u/L Lymphocytes % (21.8-53.1) % Monocytes % (5.3-12.2) % Eosinophils % (0.8-7.0) % Basophils % (0.2-1.2) % Absolute Granulocytes (1.78-5.38) x10^3/uL Basophils # (0.01-0.08) x10^3/uL D-Dimer (0.0-0.50) mg/L Sodium (135-145) mmol/L Potassium (3.5-5.1) mmol/L Chloride (98-107) mmol/L Carbon Dioxide (22-30) mmol/L Anion Gap (5-15) MEQ/L BUN (9-20) mg/dL Creatinine (0.66-1.25) mg/dL Estimated GFR ML/MIN Glucose (74-106) mg/dL Calcium (8.4-10.2) mg/dL Total Bilirubin (0.2-1.3) mg/dL AST (17-59) U/L ALT (0-50) U/L Alkaline Phosphatase (38-126) U/L Troponin I < 0.012 < 0.012 (0.000-0.033) ng/mL NT-Pro-B Natriuret Pep (<300) pg/mL Serum Total Protein (6.3-8.2) g/dL Albumin (3.5-5.0) g/dL Urine Color Yellow (Yellow) Urine Appearance Clear (Clear) Urine pH 7.0 (4.6-8.0) Ur Specific [place] 1.025 (1.005-1.030) Urine Protein Negative (Negative) Urine Glucose (UA) Negative (Negative) mg/dL Urine Ketones Negative (Negative) Urine Blood Negative (Negative) Urine Nitrite Negative (Negative) Urine Bilirubin Negative (Negative) Urine Urobilinogen 1.0 A (0.2) mg/dL Ur Leukocyte Esterase Negative (Negative) U Hyaline Cast (Auto) NONE SEEN (0-2) /LPF Urine Microscopic RBC 0-2 (0-5) /HPF Urine Microscopic WBC 0-2 (0-5) /HPF Ur Epithelial Cells None Seen (None Seen) /HPF Urine Bacteria None Seen (None Seen) /HPF Urine Culture Reflexed NO (NO) - Radiology Impressions Radiology Exams & Impressions: Radiology Procedures Category Date Time Status ABDOMEN AND PELVIS W CONTRAST [CT] Stat Exams 07/09/24 08:25 Completed CHEST WITH CONTRAST [CT] Stat Exams 07/09/24 08:25 Completed Assessment/Plan (1) Chest pain Current Visit: Yes Status: Acute Assessment & Plan: - tele - Trop x2 negative- trend - cardiology consulted - Hx of HTN and did not take meds this AM - Chest CT negative for acute concern - ASA and nitropaste in ER - Morphine and ketoralac also gave in ER - Tylenol started PRN for H/A 2:2 nitro paste. Code(s): R07.9 - CHEST PAIN, UNSPECIFIED (2) Constipation Current Visit: Yes Status: Acute Assessment & Plan: - as seen on CT abd pelvis - miralax Code(s): K59.00 - CONSTIPATION, UNSPECIFIED (3) Abnormal EKG Current Visit: Yes Status: Acute Assessment & Plan: - reviewed from ER - repeat EKG ordered Code(s): R94.31 - ABNORMAL ELECTROCARDIOGRAM [ECG] [EKG] (4) D-dimer, elevated Current Visit: Yes Status: Acute Assessment & Plan: - D-dimer 0.67 - CT chest negative for PE Code(s): R79.89 - OTHER SPECIFIED ABNORMAL FINDINGS OF BLOOD CHEMISTRY (5) Hypertension Current Visit: Yes Status: Chronic Assessment & Plan: - did not take home meds this AM- will restart now and trend BP readings. VTE: Lovenox Next of KIN: Spouse Code status: Full D/C plan: today or tomorrow Code(s): I10 - ESSENTIAL (PRIMARY) HYPERTENSION
[2024-07-09] MEDS: Miralax Powder 17GM PACKET PO SCH (16:31)
[2024-07-09] MEDS: ENOXAPARIN SODIUM SQ SCH (16:31)
[2024-07-09] MEDS: TYLENOL 325 MG PO PRN (16:31)
[2024-07-09] MEDS: TYLENOL 325 MG PO STA (20:12)
[2024-07-09] MEDS: NORVASC 5 MG PO ONE (21:03)
[2024-07-10 05:40] LABS: Hematocrit 50.5 % (40.1-51.0); Hemoglobin 17.9 g/dL (13.7-17.5); Mean Cell Volume 87.4 fL (79.0-92.2); Mean Corpuscular Hgb Concent. 35.4 g/dL (32.3-36.5); Mean Platelet Volume 9.2 fL (9.4-12.4); Platelet Count 243 x10^3/uL (163-337); Red Blood Count 5.78 x10^6/uL (4.63-6.08); Red Cell Distribution Width 12.2 % (11.6-14.4); White Blood Count 5.4 x10^3/uL (4.23-9.07)
[2024-07-10 06:01] LABS: ALBUMIN 4.4 g/dL (3.5-5.0); ANION GAP 13.3 MEQ/L (5-15); BILIRUBIN,TOTAL 0.5 mg/dL (0.2-1.3); Calcium 9.3 mg/dL (8.4-10.2); Creatinine 1 1.11 mg/dL (0.66-1.25); EST GLOMERULAR FILTRATION RATE 95.1 ML/MIN; Potassium 4.1 mmol/L (3.5-5.1); Total Protein 7.4 g/dL (6.3-8.2)
[2024-07-10 07:32] VITALS: RESP 16
[2024-07-10] MEDS: Cozaar 50 MG PO SCH (09:34)
[2024-07-10] MEDS: hydroDIURIL 25 MG PO SCH (09:35)
--- NOTE | 2024-07-10 09:36 | PCM.DS ---
Discharge Summary Date of Admission: 07/09/24 12:30 Date of Discharge: 07/10/24 Admitting Physician: JOSS BAKER MD Consults: Consults on Case 07/09/24 13:01 Consult Cardiology ROUTINE Primary Care Provider: [facility] Allergies Allergies pecan nut Allergy (Verified 07/09/24 07:20) Hospital Summary - Hospital Course Hospital Course: 07/09/24 is a 24 year old male with PMHX of HTN he presented to our ED for evaluation of right sided chest pain x 4 days. Pain worse with inspiration. Pain improved with rest. No trauma no fever. No history of PE DVT. Pain associated with shortness of breath. No nausea vomiting or diaphoresis. Pain is mild to moderate in intensity. Patient states the pain tends to radiate down into the right abdominal area. Abd CT/pelvis shows constipation. He reports last BM was this AM. He reports he did not take his BP medication today and BP elevated on admission. BP restarted IP. Trop x2 negative. Cardiology consulted as EKG is abnormal. Will also repeat EKG. Nitro paste applied in ER and pt reports ehe now has a H/A and received no relief from it. He denies any further concerns at this time. 07/10/24 Pt resting in bed. He denies CP today. Trop x3 negative. Echo results pending. Cardiology consult pending. BP stable. He has yet to have a BM since admission, continue Miralax. Repeat EKG ordered this AM. Pt states he has an appointment made with cardiology in [place] already. Likely to d/c later today if OK with cardiology. - Vitals & Intake/Output Vital Signs: Vital Signs Temperature 97.6 F 07/10/24 07:31 Pulse Rate 55 L 07/10/24 07:31 Respiratory Rate 16 07/10/24 07:31 Blood Pressure 148/86 07/10/24 07:31 O2 Sat by Pulse Oximetry 95 07/10/24 07:31 Intake & Output: Intake & Output 07/07/24 07/08/24 07/09/24 07/10/24 11:59 11:59 11:59 11:59 Intake Total 920 Balance 920 Weight 117.934 kg 113.4 kg - Lab Result Diagrams: 07/10/24 05:30 07/10/24 05:30 Lab Results-Last 24 Hrs: Lab Results-Last 24 Hours 07/09/24 07/09/24 07/09/24 Range/Units 10:02 11:24 15:39 WBC (4.23-9.07) x10^3/uL RBC (4.63-6.08) x10^6/uL Hgb (13.7-17.5) g/dL Hct (40.1-51.0) % MCV (79.0-92.2) fL MCH (25.7-32.2) pg MCHC (32.3-36.5) g/dL RDW (11.6-14.4) % Plt Count (163-337) x10^3/uL MPV (9.4-12.4) fL Sodium (135-145) mmol/L Potassium (3.5-5.1) mmol/L Chloride (98-107) mmol/L Carbon Dioxide (22-30) mmol/L Anion Gap (5-15) MEQ/L BUN (9-20) mg/dL Creatinine (0.66-1.25) mg/dL Estimated GFR ML/MIN Glucose (74-106) mg/dL Calcium (8.4-10.2) mg/dL Total Bilirubin (0.2-1.3) mg/dL AST (17-59) U/L ALT (0-50) U/L Alkaline Phosphatase (38-126) U/L Troponin I < 0.012 < 0.012 (0.000-0.033) ng/mL Serum Total Protein (6.3-8.2) g/dL Albumin (3.5-5.0) g/dL Urine Color Yellow (Yellow) Urine Appearance Clear (Clear) Urine pH 7.0 (4.6-8.0) Ur Specific [place] 1.025 (1.005-1.030) Urine Protein Negative (Negative) Urine Glucose (UA) Negative (Negative) mg/dL Urine Ketones Negative (Negative) Urine Blood Negative (Negative) Urine Nitrite Negative (Negative) Urine Bilirubin Negative (Negative) Urine Urobilinogen 1.0 A (0.2) mg/dL Ur Leukocyte Esterase Negative (Negative) U Hyaline Cast (Auto) NONE SEEN (0-2) /LPF Urine Microscopic RBC 0-2 (0-5) /HPF Urine Microscopic WBC 0-2 (0-5) /HPF Ur Epithelial Cells None Seen (None Seen) /HPF Urine Bacteria None Seen (None Seen) /HPF Urine Culture Reflexed NO (NO) 07/10/24 07/10/24 Range/Units 05:30 05:30 WBC 5.4 (4.23-9.07) x10^3/uL RBC 5.78 (4.63-6.08) x10^6/uL Hgb 17.9 H (13.7-17.5) g/dL Hct 50.5 (40.1-51.0) % MCV 87.4 (79.0-92.2) fL MCH 31.0 (25.7-32.2) pg MCHC 35.4 (32.3-36.5) g/dL RDW 12.2 (11.6-14.4) % Plt Count 243 (163-337) x10^3/uL MPV 9.2 L (9.4-12.4) fL Sodium 138 (135-145) mmol/L Potassium 4.1 (3.5-5.1) mmol/L Chloride 103 (98-107) mmol/L Carbon Dioxide 25 (22-30) mmol/L Anion Gap 13.3 (5-15) MEQ/L BUN 20 (9-20) mg/dL Creatinine 1.11 (0.66-1.25) mg/dL Estimated GFR 95.1 ML/MIN Glucose 94 (74-106) mg/dL Calcium 9.3 (8.4-10.2) mg/dL Total Bilirubin 0.50 (0.2-1.3) mg/dL AST 32 (17-59) U/L ALT 47 (0-50) U/L Alkaline Phosphatase 45 (38-126) U/L Troponin I (0.000-0.033) ng/mL Serum Total Protein 7.4 (6.3-8.2) g/dL Albumin 4.4 (3.5-5.0) g/dL Urine Color (Yellow) Urine Appearance (Clear) Urine pH (4.6-8.0) Ur Specific [place] (1.005-1.030) Urine Protein (Negative) Urine Glucose (UA) (Negative) mg/dL Urine Ketones (Negative) Urine Blood (Negative) Urine Nitrite (Negative) Urine Bilirubin (Negative) Urine Urobilinogen (0.2) mg/dL Ur Leukocyte Esterase (Negative) U Hyaline Cast (Auto) (0-2) /LPF Urine Microscopic RBC (0-5) /HPF Urine Microscopic WBC (0-5) /HPF Ur Epithelial Cells (None Seen) /HPF Urine Bacteria (None Seen) /HPF Urine Culture Reflexed (NO) - Radiology Exams Ordered Rad Exams-Entire Visit: Radiology Procedures Category Date Time Status ABDOMEN AND PELVIS W CONTRAST [CT] Stat Exams 07/09/24 08:25 Completed CHEST WITH CONTRAST [CT] Stat Exams 07/09/24 08:25 Completed ECHO W/2D AND DOPPLER [US] Routine Exams 07/09/24 13:23 Taken - Procedures and Test Procedures and Tests throughout Hospitalization: Therapy Orders & Screens 07/09/24 13:06 EKG STAT Comment: 07/10/24 07:31 EKG ROUTINE Comment: Diagnosis: Chest pain/ACS Discharge Exam General Appearance: no apparent distress, alert Neurologic Exam: alert, oriented x 3, cooperative, normal mood/affect, nml cerebellar function, sensation nml, No motor deficits Eye Exam: PERRL, EOMI, eyes nml inspection Ears, Nose, Throat Exam: normal ENT inspection, pharynx normal, moist mucous membranes Neck Exam: normal inspection, non-tender, supple, full range of motion Respiratory Exam: normal breath sounds, lungs clear, No respiratory distress Cardiovascular Exam: regular rate/rhythm, normal heart sounds Gastrointestinal/Abdomen Exam: soft, tenderness (RUQ with palpation), No mass Male Genitalia Exam: deferred Rectal Exam: deferred Back Exam: normal inspection, normal range of motion, No CVA tenderness, No vertebral tenderness Extremity Exam: normal inspection, normal range of motion Skin Exam: normal color, warm, dry Final Diagnosis/Problem List - Final Discharge Diagnosis/Problem (1) Chest pain Current Visit: Yes Status: Acute Code(s): R07.9 - CHEST PAIN, UNSPECIFIED (2) Constipation Current Visit: Yes Status: Acute Code(s): K59.00 - CONSTIPATION, UNSPECIFIED (3) Abnormal EKG Current Visit: Yes Status: Acute Code(s): R94.31 - ABNORMAL ELECTROCARDIOGRAM [ECG] [EKG] (4) D-dimer, elevated Current Visit: Yes Status: Acute Code(s): R79.89 - OTHER SPECIFIED ABNORMAL FINDINGS OF BLOOD CHEMISTRY (5) Hypertension Current Visit: Yes Status: Chronic Assessment & Plan: (1) Chest pain Current Visit: Yes Status: Acute Assessment & Plan: - tele - Trop x2 negative- trend - cardiology consulted - Hx of HTN and did not take meds this AM - Chest CT negative for acute concern - ASA and nitropaste in ER - Morphine and ketoralac also gave in ER - Tylenol started PRN for H/A 2:2 nitro paste. 07/10 - CP resolved - Cardiology consult recommended increasing amlodipine to 10 mg daily and F/U OP with cardiology and bring a log of daily tracking of BP readings. - Echo results reviewed Code(s): R07.9 - CHEST PAIN, UNSPECIFIED (2) Constipation Current Visit: Yes Status: Acute Assessment & Plan: - as seen on CT abd pelvis - miralax 07/10 - Continue Miralax, no BM last night + RUQ abd pain with palpation Code(s): K59.00 - CONSTIPATION, UNSPECIFIED (3) Abnormal EKG Current Visit: Yes Status: Acute Assessment & Plan: - reviewed from ER - repeat EKG ordered 07/10 - Am EKG ordered Code(s): R94.31 - ABNORMAL ELECTROCARDIOGRAM [ECG] [EKG] (4) D-dimer, elevated Current Visit: Yes Status: Acute Assessment & Plan: - D-dimer 0.67 - CT chest negative for PE Code(s): R79.89 - OTHER SPECIFIED ABNORMAL FINDINGS OF BLOOD CHEMISTRY (5) Hypertension Current Visit: Yes Status: Chronic Assessment & Plan: - did not take home meds this AM- will restart now and trend BP readings. 07/10 - BP stable- improved with home meds Code(s): I10 - ESSENTIAL (PRIMARY) HYPERTENSION - Discharge Discharge Date: 07/10/24 Disposition: Home, Self-Care Condition: Stable Prescriptions: Continue Losartan Potassium [Cozaar] 100 mg PO DAILY Hydrochlorothiazide 25 mg [hydroDIURIL 25 MG] 25 mg PO DAILY Additional Instructions: Keep a log of BP readings daily and take to cardiology appointment. Follow up with: HOSPITAL,'S [Primary Care Provider] - Forms: Work/School Release Form
[2024-07-10 11:58] VITALS: TEMP 97.9; O2SAT 97
[2024-07-10 12:03] VITALS: BP 156/99; PULSE 55
== END 2024-07-10 15:42 | disposition home or self-care (01) ==
LOC: ED 07:11 → MED SURG 12:30 → ED 12:41
PROVIDERS: ADMIT Internal Medicine; ATTEND Internal Medicine
DX: R07.9 Chest pain, unspecified (principal); K59.00 Constipation, unspecified; R94.31 Abnormal electrocardiogram [ECG] [EKG]; R79.89 Other specified abnormal findings of blood chemistry; I10 Essential (primary) hypertension; Z79.899 Other long term (current) drug therapy
CPT/HCPCS: 36415; 71260; 74177; 80053; 81001; 83880; 84484; 85025; 85027; 85379; 93005; 93041; 93268; 93306; 94760; 96374; 96375; 99285; J1650; J1885; J2270; A9270-GY; G0378